=== PATIENT | male | born 1985 | race Two or more races ===

== ENCOUNTER 2023-12-05 09:42 | Emergency (ER) | payer OTHER ==
[~2023-12-05] VITALS: Ht 165.1 cm; Wt 68.2 kg
[2023-12-05 09:47] VITALS: TEMP 98.7
[2023-12-05] MEDS: BACLOFEN 10 MG TABLET PO ONE (13:07)
[2023-12-05] MEDS: IBUPROFEN 600 MG TABLET PO ONE (13:09)
[2023-12-05] MEDS: LIDOCAINE 5% TRANSDERMAL PATCH TD ONE (13:09)
[2023-12-05 13:23] VITALS: BP 110/65; PULSE 61; RESP 16
[2023-12-05] MEDS ORDERED: BACL10TA PO (13:40)
[2023-12-05] MEDS ORDERED: IBUP-1492 PO (13:42)
== END 2023-12-05 14:20 | disposition home or self-care (01) ==
LOC: EMS 09:42
DX: M54.50 Low back pain, unspecified (principal)
CPT/HCPCS: 72100; 99284; Z7502; Z7610